=== PATIENT | male | born 1995 | race African-American/Black ===

== ENCOUNTER 2022-09-05 09:13 | Inpatient (IN) | payer MEDICAID, OTHER ==
[~2022-09-05] VITALS: Ht 182.9 cm; Wt 90.0 kg
[2022-09-05 10:34] LABS: BASOPHILS % 0.4 % (0.0-2.0); EOSINOPHILS % 1.4 % (0.0-5.0); HEMATOCRIT. 43.3 % (42.0-52.0); HEMOGLOBIN. 14.7 g/dL (14.0-18.0); LYMPHOCYTES % 26.3 % (20.0-50.0); MEAN CORPUSCULAR VOLUME 94.6 fL (80.0-94.0); MEAN PLATELET VOLUME 8.3 fl (7.4-10.4); MONOCYTES % 7.3 % (2.0-8.0); NEUTROPHILS % 64.6 % (40.0-76.0); PLATELET 264 x1000/uL (130-400); RED BLOOD CELL COUNT 4.58 mill/uL (4.7-6.1); RED CELL DISTRIBUTION WIDTH 13.9 % (11.6-14.6)
[2022-09-05 10:42] LABS: CHLORIDE 108 mEq/L (98-107)
[2022-09-05 10:51] LABS: ETHANOL BLOOD < 10 mg/dL
[2022-09-05] MEDS ORDERED: ACETAMINOPHEN 325MG TABLET PO ONE (11:30)
[2022-09-05 11:55] LABS: CLARITY URINE CLEAR (CLEAR); COLOR URINE YELLOW (YELLOW); KETONES URINE NEGATIVE (NEGATIVE); LEUKOCYTE ESTERASE URINE NEGATIVE (NEGATIVE); NITRITE URINE NEGATIVE (NEGATIVE); OCCULT BLOOD URINE NEGATIVE (NEGATIVE); PH URINE 5.5 (4.5-8.0); PROTEIN URINE 1+ (NEGATIVE); SPECIFIC GRAVITY URINE 1.017 (1.005-1.030); UROBILINOGEN URINE 0.2 E.U./dL (0.2-1.0)
[2022-09-05 12:23] LABS: *AMPHETAMINES SCREEN URINE NEGATIVE (NEGATIVE); *BARBITURATES SCREEN URINE NEGATIVE (NEGATIVE); *BENZODIAZEPINES SCREEN URINE NEGATIVE (NEGATIVE); *COCAINE SCREEN URINE NEGATIVE (NEGATIVE); CANNABINOID URINE SCREEN PRESUMTIVE POSITIVE (NEGATIVE); METHADONE URINE SCREEN NEGATIVE (NEGATIVE); OPIATES URINE SCREEN NEGATIVE (NEGATIVE); PHENCYCLIDINE URINE SCREEN NEGATIVE (NEGATIVE)
[2022-09-05] MEDS ORDERED: POTASSIUM CHLORIDE 20MEQ TABLET SR PO NR (14:45)
[2022-09-05] MEDS ORDERED: CLONIDINE 0.1MG TABLET PO PRN (15:15)
[2022-09-05] MEDS ORDERED: GUAIFENESIN 200MG/10ML SUGAR FREE UDC PO PRN (15:15)
[2022-09-05] MEDS ORDERED: ACETAMINOPHEN 325MG TABLET PO PRN ×2 (15:15)
[2022-09-05] MEDS ORDERED: NALOXONE HCL 0.4MG/ML VIAL IV PRN (15:15)
[2022-09-05] MEDS ORDERED: ONDANSETRON HCL 4MG/2ML INJ IV PRN (15:15)
[2022-09-05] MEDS ORDERED: DOCUSATE SODIUM 100MG CAPSULE PO PRN (15:15)
[2022-09-05] MEDS ORDERED: MAGNESIUM/ALUMINUM HYDROXIDE/SIMETHICONE 30ML UDC PO PRN (15:15)
[2022-09-05] MEDS ORDERED: IPRATROPIUM/ALBUTEROL 0.5-3(2.5)MG/3ML NEB HHN PRN (15:15)
[2022-09-05] MEDS ORDERED: HYDROCODONE/ACETAMINOPHEN 5/325MG TABLET PO PRN (15:15)
[2022-09-05 16:00] VITALS: BP 126/69
[2022-09-05 16:16] LABS: CREATINE KINASE 196 IU/L (39-308); PHOSPHORUS 1.8 mg/dL (2.5-4.9)
[2022-09-05 17:30] VITALS: BP 126/69
[2022-09-05] MEDS: THIAMINE HCL 100MG TABLET PO SCH ×2 (17:30→17:38)
[2022-09-05] MEDS ORDERED: LORAZEPAM 2MG/ML CPJ IM PRN (17:30)
[2022-09-05] MEDS: PANTOPRAZOLE SODIUM 40 MG/VIAL IV SCH ×2 (17:30→17:38)
[2022-09-05] MEDS: ENOXAPARIN 40MG/0.4ML SYR SUBCUT SCH ×2 (17:38→17:39)
[2022-09-05] MEDS: SERTRALINE HCL 50MG TABLET PO SCH (17:38)
[2022-09-05] MEDS ORDERED: LEVETIRACETAM 500MG TABLET PO SCH (21:00)
== END 2022-09-05 18:56 | disposition left against medical advice (07) | DRG 53 ==
LOC: ER 09:13 → 3WST 13:27
PROVIDERS: ADMIT Hospitalist; ATTEND Hospitalist
DX: G40.909 Epilepsy, unspecified, not intractable, without status epilepticus (principal); E87.6 Hypokalemia; J45.909 Unspecified asthma, uncomplicated; R73.9 Hyperglycemia, unspecified; Z53.29 Procedure and treatment not carried out because of patient's decision for other reasons; F32.A Depression, unspecified; F17.200 Nicotine dependence, unspecified, uncomplicated; Z21 Asymptomatic human immunodeficiency virus [HIV] infection status
CPT/HCPCS: 36415; 71045; 80053; 80305; 80320; 81003; 82248; 82550; 82962; 83036; 83735; 84100; 85025; 99285; C9113; J1650; G0480

== ENCOUNTER 2024-11-30 14:18 | Emergency (ER) | payer MEDICAID ==
[~2024-11-30] VITALS: Ht 182.9 cm; Wt 91.0 kg
[2024-11-30 14:20] VITALS: BP 123/82; PULSE 83; RESP 16; TEMP 36.8; O2SAT 99
[2024-11-30] MEDS: ALBUTEROL (0.083%) 2.5MG/3ML NEB HHN ONE (15:55)
[2024-11-30] MEDS: IPRATROPIUM BROMIDE (0.02%) 0.5MG/2.5ML NEB HHN ONE (15:55)
[2024-11-30] MEDS: DEXAMETHASONE 4MG TABLET PO ONE (16:21)
[2024-11-30 17:30] LABS: BASOPHILS % 0.4 % (0.0-2.0); EOSINOPHILS % 2.0 % (0.0-5.0); HEMATOCRIT. 43.7 % (42.0-52.0); HEMOGLOBIN. 15.0 g/dL (14.0-18.0); LYMPHOCYTES % 28.2 % (20.0-50.0); MEAN PLATELET VOLUME 8.4 fl (7.4-10.4); MONOCYTES % 7.8 % (2.0-8.0); NEUTROPHILS % 61.6 % (40.0-76.0); PLATELET 236 x1000/uL (130-400); RED BLOOD CELL COUNT 4.61 mill/uL (4.7-6.1); RED CELL DISTRIBUTION WIDTH 13.1 % (11.6-14.6)
[2024-11-30 17:36] LABS: CREATININE 1.0 mg/dL (0.6-1.3); UREA NITROGEN BLOOD 17 mg/dL (9-23)
[2024-11-30 17:37] LABS: TROPONIN I HIGH SENSITIVITY < 4 ng/L (3.0-53)
[2024-11-30] MEDS ORDERED: ALBU2.5V13 NEB (18:31)
[2024-11-30] MEDS ORDERED: ALBU90AE INH (18:31)
[2024-11-30] MEDS: POTASSIUM CHLORIDE 20MEQ/PACKET PO ONE (18:51)
== END 2024-11-30 18:53 | disposition home or self-care (01) ==
LOC: ER 14:18
DX: J45.909 Unspecified asthma, uncomplicated (principal); Z92.3 Personal history of irradiation; R06.02 Shortness of breath; R07.89 Other chest pain
CPT/HCPCS: 80048; 85025; 84484; 36415; 71045; 93005; 99285; J8540; Z7610